=== PATIENT | male | born 1945 | race Caucasian/White ===

== ENCOUNTER 2016-07-17 21:42 | Observation (INO) | payer OTHER ==
[2016-07-17 21:52] VITALS: BMI 32.5
--- NOTE | 2016-07-17 22:11 | PDOC ---
History of Present Illness - History of Present Illness Initial Comments: 07/17/16 22:23 Patient is a 71 year old male with significant medical hx of nephrectomy who is presenting to the ED after an episode of altered mental status that occurred around 7:30 PM this evening. Today the patient reports having a left ocular migraine, which he says hes had in the past, with seeing colorful light patterns. About an hour later, after his migraine resolved, the patient was having dinner with his when he had a 30-40 minute episode of confusion. The patient states he was unable to understand and identify certain words and places, such as [place] and the name of a long term acute care registered nurse friend. He states that during this episode, his peripheral vision became blurry and he developed a type of tunnel vision. He also endorses some transient shortness of breath without any diaphoresis or chest pain. Patient denies any slurred speech, facial droop, weakness, ataxia, diplopia, head trauma, chest pain, or loss of consciousness. PCP: Casper Jackson MD <Priti Knapp - Last Filed: 07/18/16 01:19> <Magda Matute - Last Filed: 07/18/16 04:25> - General Chief Complaint: Altered Mental Status Stated Complaint: DROOPED FACE/LOSS OF MEMORY Time Seen by Provider: 07/17/16 22:10 Past History <Priti Knapp - Last Filed: 07/18/16 01:19> - Psycho/Social/Smoking Cessation Hx Suicidal Ideation: No Smoking History: Never smoked <Magda Matute - Last Filed: 07/18/16 04:25> - Past Medical History Allergies/Adverse Reactions: Allergies Allergy/AdvReac Type Severity Reaction Status Date / Time No Known Allergies Allergy Verified 07/17/16 21:49 Home Medications: Ambulatory Orders NK [No Known Home Medication] 07/17/16 Review of Systems - Review of Systems Comments:: 07/17/16 22:25 CONSTITUTIONAL: Absent: fever, chills, diaphoresis, generalized weakness, malaise, loss of appetite HEENT: Present: visual changes Absent: rhinorrhea, nasal congestion, throat pain, throat swelling, difficulty swallowing, mouth swelling, ear pain, eye pain CARDIOVASCULAR: Absent: chest pain, syncope, palpitations, irregular heart rate, lightheadedness , peripheral edema RESPIRATORY: Absent: cough, shortness of breath, dyspnea with exertion, orthopnea, wheezing, stridor, hemoptysis GASTROINTESTINAL: Absent: abdominal pain, abdominal distension, nausea, vomiting, diarrhea, constipation, melena, hematochezia GENITOURINARY: Absent: dysuria, frequency, urgency, hesitancy, hematuria, flank pain, genital pain MUSCULOSKELETAL: Absent: myalgia, arthralgia, joint swelling SKIN: Absent: rash, itching, pallor HEMATOLOGIC/IMMUNOLOGIC: Absent: easy bleeding, easy bruising, lymphadenopathy, frequent infections ENDOCRINE: Absent: unexplained weight gain, unexplained weight loss, heat intolerance, cold intolerance NEUROLOGIC: Present: headache, mental status changes, confusion Absent: focal weakness or paresthesia, dizziness, unsteady gait, seizure, bladder or bowel incontinence. PSYCHIATRIC: Absent: anxiety, depression, suicidal or homicidal ideation, hallucinations <Priti Knapp - Last Filed: 07/18/16 01:19> *Physical Exam - Vital Signs Last Vital Signs Temp Pulse Resp BP Pulse Ox 97.8 F 84 18 156/84 96 07/17/16 21:50 07/17/16 21:50 07/17/16 21:50 07/17/16 21:50 07/17/16 21:50 - Physical Exam Comments: 07/17/16 22:26 GENERAL: Well developed, well nourished. Awake and alert. No acute distress. HEENT: Normocephalic, atraumatic. PERRLA, EOMI. No conjunctival pallor. Sclera are non- icteric. Moist mucous membranes. Oropharynx is clear. NECK: Supple. Full ROM. No JVD. Carotid pulses 2+ and symmetric, without bruits. No thyromegaly. No lymphadenopathy. CARDIOVASCULAR: Regular rate and rhythm. No murmurs, rubs, or gallops. Distal pulses are 2+ and symmetric. PULMONARY: No evidence of respiratory distress. Lungs clear to auscultation bilaterally. No wheezing, rales or rhonchi. ABDOMINAL: Soft. Non-tender. Non-distended. No rebound or guarding. No organomegaly. Normoactive bowel sounds. MUSCULOSKELETAL: Normal range of motion at all joints. No bony deformities or tenderness. No CVA tenderness. EXTREMITIES: No cyanosis. No clubbing. No edema. No calf tenderness. SKIN: Warm and dry. Normal capillary refill. No rashes. No jaundice. NEUROLOGICAL: Alert, awake, appropriate. No gross focal neurological deficits. Cranial nerves 2-12 intact. Normal speech. Toes are down-going bilaterally. Gait is normal without ataxia. PSYCHIATRIC: Cooperative. Good eye contact. Appropriate mood and affect. <Priti Knapp - Last Filed: 07/18/16 01:19> - Vital Signs Last Vital Signs Temp Pulse Resp BP Pulse Ox 97.8 F 84 18 156/84 96 07/17/16 21:50 07/17/16 21:50 07/17/16 21:50 07/17/16 21:50 07/17/16 21:50 <Magda Matute - Last Filed: 07/18/16 04:25> NIH Stroke Scale - Last Known Well Date/Time & Onset Date Last Known Well: 07/17/16 Time Last Known Well: 19:00 - Initial Evaluation Level of consciousness: Alert Ask patient the month and their age: Answers both correctly Ask patient to open & close eyes; make fist and let go: Obeys both correctly Best gaze (horizontal eye movement): Normal Visual field testing: No visual field loss Facial paresis (Show teeth/raise eyebrows/close eyes tight): Normal symmetrical movement Motor Function: Left Arm: Normal Motor Function: Right Arm: Normal (extends arm 90 (or 45) degrees for 10 seconds without drift Motor Function: Left Leg: Normal (extends leg 30 degrees for 5 seconds without drift) Motor Function: Right Leg: Normal (extends leg 30 degrees for 5 seconds without drift) Limb Ataxia: No ataxia Sensory(Use pinprick test arms,legs,trunk,face/side to side): Normal Best language (Describe picture, name items, read sentences): No Aphasia Dysarthria (read several words): Normal articulation Extinction and Inattention: No abnormality - Total Score NIH Stroke Scale Score: 0 <Magda Matute - Last Filed: 07/18/16 04:25> tPA Exclusion Checklist 0-3hr - Time Elapsed Date last known well: 07/17/16 Time last known well: 19:00 Elaspsed time: Day(s) and 9 Hour(s) and 20 Minutes - Thrombolytic Therapy Candidate Is the patient eligible for Thrombolytic Therapy?: No - Exclusion Criteria 0-3hr SBP greater than 185 or DBP greater than 110mmHg despite tx: No Recent IC/spinal surgery,head trauma or stroke w/in last 3mo: No Hx of previous IC hemorrhage, IC neoplasm, AVM or aneurysm: No Active internal bleeding: No Blding diathesis(low plt ct, inc PTT,INR>1.7 or use of NOAC): No Symptoms suggest subarachnoid hemorrhage: No CT demonstrates multilobar infarct(>1/3 cerebral hemiphere): No Arterial puncture at noncompressible site in previous 7 days: No Blood glucose concentration less than 50mg/dL (2.7mmol/L): No - Relative Exclusion Criteria 0-3h Life expectancy <1yr/severe co-morbid illness/MECHANIC on admit: No : No Patient/family refused: No Rapid improvement: Yes Stroke severity too mild: Yes Recent acute RI (w/in previous 3 months): No Seizure at onset with postictal residual neuro impairments: No Major surgery or serious trauma w/in previous 14 days: No Recent GI or hemorrhage (w/in previous 21 days): No - Ineligibility reason(s) Reasons No tPA given: See reason(s) noted above (patient was back to baseline) <Magda Matute - Last Filed: 07/18/16 04:25> Critical Care Time/MDM Note - Medical Decision Making Note: 07/18/16 04:21 71 yo Male presented with a 40 minute episode of confusion -upon arrival his NIHSS was zero -T PA and was not given because patient was back to baseline upon arrival I spoke to neurologist, Dr. Cuadra and discussed case MRI should be done this morning diff diag includes: -TIA -complex seizure/temporal lobe -transient global amnesia -complex migraine pt given aspirin <Magda Matute - Last Filed: 07/18/16 04:25> Discharge Disposition <Priti Knapp - Last Filed: 07/18/16 01:19> - Discharge Dispostion Admit: Yes <Magda Matute - Last Filed: 07/18/16 04:25> - Diagnosis TIA (transient ischemic attack) Qualifiers: Transient cerebral ischemia type: other Qualified Code(s): G45.8 - Other transient cerebral ischemic attacks and related syndromes Attestations - Attestations 07/17/16 22:27 Documentation prepared by Priti Knapp, acting as chief medical technologist for Magda Matute MD. <Priti Knapp - Last Filed: 07/18/16 01:19> ED Treatment Course - LABORATORY CBC & Chemistry Diagram: 07/17/16 22:33 07/17/16 22:33 - RADIOLOGY Radiograph Interpretation: 07/17/16 23:[address] Impression: No definite acute infarct is identified within the limitations of CT. A small right basal ganglia infarct is noted which is probably chronic, less likely subacute. Reported By: Candido Perez MD <Priti Knapp - Last Filed: 07/18/16 01:19> - LABORATORY CBC & Chemistry Diagram: 07/17/16 22:33 07/17/16 22:33 <Magda Matute - Last Filed: 07/18/16 04:25>
[2016-07-17] MEDS ORDERED: SODIUM CHLORIDE 1,000 ML IV SCH (22:15)
[2016-07-17 23:21] LABS: BASOPHIL 0.9 % (0-2.0); EOSINOPHIL 4.4 % (0-4.5); MCH 30.8 pg (25.7-33.7); MCHC 33.5 g/dl (32.0-35.9); MEAN PLT VOLUME 9.5 fl (7.5-11.1); NEUTROPHILS 51.2 % (42.8-82.8); PLATELET COUNT 210 K/MM3 (134-434); RDW 13.1 % (11.9-15.9); WHITE BLOOD COUNT 7.7 K/mm3 (4.0-10.0)
[2016-07-17 23:34] LABS: INR 1.04 (0.82-1.09); PROTHROMBIN TIME (PATIENT) 11.5 SEC (9.98-11.88)
[2016-07-17 23:47] LABS: ALBUMIN 3.4 g/dl (3.4-5.0); ANION GAP 10 (8-16); BILIRUBIN,TOTAL 0.3 mg/dL (0.2-1.0); CALCIUM 8.6 mg/dL (8.5-10.1); CHOLESTEROL 178 mg/dL (50-200); CO2 26 mmol/L (21-32); COCKROFT - GAULT 74.67; CREATININE 1.5 mg/dL (0.7-1.3); GLUCOSE,RANDOM 123 mg/dL (74-106); SGPT/ALT 32 U/L (12-78); TOT PROT 6.4 g/dl (6.4-8.2)
[2016-07-17 23:50] LABS: ALK PHOS 81 U/L (45-117); TROPONIN I < 0.02 ng/ml (0.00-0.05)
[2016-07-17 23:56] LABS: SGOT/AST 29 U/L (15-37)
[2016-07-18 00:11] LABS: URINE APPEARANCE CLEAR; URINE BILIRUBIN NEGATIVE (NEGATIVE); URINE BLOOD NEGATIVE (NEGATIVE); URINE COLOR LTYELLOW; URINE GLUCOSE (UA) NEGATIVE (NEGATIVE); URINE KETONE NEGATIVE (NEGATIVE); URINE LEUK ESTERASE NEGATIVE (NEGATIVE); URINE NITRITE NEGATIVE (NEGATIVE); URINE PROTEIN NEGATIVE (NEGATIVE); URINE UROBILINOGEN NEGATIVE E.U./dl (0.2-1.0)
[2016-07-18] MEDS ORDERED: ASPIRIN 81 MG CHEWABLE TABLETS PO ONE (02:34)
[2016-07-18] MEDS ORDERED: ASPIRIN 81 MG CHEWABLE TABLETS ONE (02:36)
[2016-07-18 02:38] LABS: LDL CHOLESTEROL (ONLY SJRH) 117 mg/dL (5-100)
[2016-07-18 06:41] LABS: CALCIUM 9.1 mg/dL (8.5-10.1); COCKROFT - GAULT 74.67; CREATININE 1.5 mg/dL (0.7-1.3)
[2016-07-18 06:43] LABS: C-REACTIVE PROTEIN 0.7 MG/DL (0.00-0.3)
--- NOTE | 2016-07-18 10:51 | HP ---
Admitting History and Physical - Primary Care Physician PCP: Casper Jackson - Admission Chief Complaint: I had trouble remembering History of Present Illness: Mr Jaimes is a very pleasant 71 year old male who comes in with episode of confusion. He has a history of ocular migraines and had one yesterday. It lasted about 20 minutes before resolving, he says it was his normal ocular migraine and he normally gets them about once a month. He was sitting with his at a restaurant yesterday and his mentioned his sister in law [place] , and he says that the name meant absolutely nothing to him at the moment and when he tried to think about it everything felt fuzzy. He says his mentioned other people as well, including his mom, and he could not associate their names with the person she was talking about. He says this lasted 30 minutes and resolved. He says aside from this he was feeling fine. He was not having ocular migraines or changes in vision during the episode of confusion. He denies hearing changed, facial droop, difficulty word finding, focal weakness , or numbness/tingling. He did not have lighheadedness, dizziness, passing out, chest pain, fluttering, palpitations, abdominal pain, nausea, vomiting, diarrhea , constipation, or swelling. He had minor dyspnea on exertion after the episode but it did not last long. Currently he is feeling fine. 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) - Past Surgical History Past Surgical History: Yes: Hernia Repair, Nephrectomy (donor) - Smoking History Smoking history: Never smoked - Alcohol/Substance Use Hx Alcohol Use: Yes History of Substance Use: reports: None - Social History Usual Living Arrangement: Yes: With Spouse ADL: Independent History of Recent Travel: No Home Medications - Allergies Allergies/Adverse Reactions: Allergies Allergy/AdvReac Type Severity Reaction Status Date / Time No Known Allergies Allergy Verified 07/17/16 21:49 - Home Medications Home Medications: Ambulatory Orders NK [No Known Home Medication] 07/17/16 Family Disease History - Family Disease History Family Disease History: Other: Father (CVA from VTE s/p surgery), Mother ( alzheimers) Review of Systems Findings/Remarks: Full review of systems obtained, as per HPI and otherwise negative Physical Examination Vital Signs: Vital Signs Temperature 98.0 F 07/18/16 02:29 Pulse Rate 56 L 07/18/16 08:01 Respiratory Rate 18 07/18/16 08:01 Blood Pressure 143/81 07/18/16 08:01 O2 Sat by Pulse Oximetry (%) 97 07/18/16 08:01 Constitutional: Yes: No Distress, Calm, Obese Eyes: Yes: Conjunctiva Clear, EOM Intact, PERRL HENT: Yes: Atraumatic, Normocephalic Cardiovascular: Yes: Regular Rate and Rhythm. No: Gallop, Murmur, Rub Respiratory: Yes: Regular, CTA Bilaterally. No: Rales, Rhonchi, Wheezes Gastrointestinal: Yes: Normal Bowel Sounds, Soft. No: Distention, Tenderness Extremities: Yes: WNL Edema: No Labs: CBC, BMP 07/18/16 06:10 Imaging - Results Cat Scan: Report Reviewed Problem List - Problems (1) TIA (transient ischemic attack) Assessment/Plan: -symptoms most consistent with TIA -however will consider underlying arrhythmia as well -admit under observation -neurology consulted -carotid ultrasound reviewed -ECHO ordered -awaiting MRI -start low dose aspirin -if work up negative, will contact office for outpatient holter or event monitor Code(s): G45.9 - TRANSIENT CEREBRAL ISCHEMIC ATTACK, UNSPECIFIED Qualifiers: Transient cerebral ischemia type: transient global amnesia Qualified Code(s): G45.4 - Transient global amnesia (2) CVA, old, alterations of sensations Assessment/Plan: -noted on CT scan -? if source of ocular migraines -will start on aspirin and statin Code(s): I69.398 - OTHER SEQUELAE OF CEREBRAL INFARCTION R20.9 - UNSPECIFIED DISTURBANCES OF SKIN SENSATION (3) HLD (hyperlipidemia) Assessment/Plan: -elevated LDL and decreased HDL -begin lipitor -recommend outpatient diet and exercise program Code(s): E78.5 - HYPERLIPIDEMIA, UNSPECIFIED (4) Ocular migraine Assessment/Plan: -currently resolved Code(s): G43.109 - MIGRAINE WITH AURA, NOT INTRACTABLE, W/O STATUS MIGRAINOSUS (5) SAMY (acute kidney injury) Assessment/Plan: -suspect secondary to one kidney -continue hydration -check urine sodium and creatinine -check urinalysis -check renal ultrasound -if remaining kidney normal, can monitor as an outpatient Code(s): N17.9 - ACUTE KIDNEY FAILURE, UNSPECIFIED
[2016-07-18 16:04] LABS: URINE CREATININE 39.9 mg/dL (20-370)
--- NOTE | 2016-07-18 16:38 | DS ---
Physical Examination Vital Signs: Vital Signs Temperature 97.9 F 07/18/16 15:34 Pulse Rate 68 07/18/16 15:34 Respiratory Rate 18 07/18/16 15:34 Blood Pressure 133/87 07/18/16 15:34 O2 Sat by Pulse Oximetry (%) 96 07/18/16 15:34 Findings/Remarks: Refer to H&P for physical exam Labs: CBC, BMP 07/18/16 06:10 Discharge Summary Reason For Visit: TIA Current Active Problems SAMY (acute kidney injury) (Acute) CVA, old, alterations of sensations (Acute) HLD (hyperlipidemia) (Acute) Ocular migraine (Acute) TIA (transient ischemic attack) (Acute) Hospital Course: Mr Jaimes is a very pleasant 71 year old male who came in with a TIA. By the time he presented all symptoms had resolved. He was admitted under observation. He had carotid ultrasound which showed no significant stenosis. He had an ECHO which was normal. CT scan showed old CVA, MRI confirmed this. There was no new lesion, but an old lacunar lesion was seen. Neurology consulted and reviewed findings. Currently he is safe for discharge. He was started on low dose lipitor since his LDL was above 100 with infarct. He was also encouraged to take a low dose aspirin. He is to follow up with Dr Mathis for Holter monitor as symptoms may be secondary to arrhythmia. He is to discuss a diet and exercise regimen with Dr Jackson. Condition: Good - Instructions Diet, Activity, Other Instructions: low fat diet. resume previous activity. discuss with PCP diet and exercise regimen. Call Dr Mathis's office to reschedule appointment for Holter monitor. Referrals: Casper Jackson MD [Primary Care Provider] - Avinash Mathis MD [Staff Physician] - Daniel Cuadra DO [Staff Physician] - Disposition: HOME - Home Medications Comprehensive Discharge Medication List: Ambulatory Orders Aspirin [ASA -] 81 mg PO DAILY #0 tab.chew 07/18/16 Atorvastatin Ca [Lipitor] 10 mg PO HS #30 tablet 07/18/16
[2016-07-18 17:03] VITALS: BP 130/88; PULSE 70; TEMP 97.7
[2016-07-18] MEDS ORDERED: ATORVASTATIN CA 10 MG TABLET (FP) PO SCH (22:00)
[2016-07-19] MEDS ORDERED: ASPIRIN 81 MG CHEWABLE TABLETS PO SCH (10:00)
--- NOTE | 2016-07-19 16:35 | EKG ---
Test Reason : Blood Pressure : / mmHG Vent. Rate : 061 BPM Atrial Rate : 061 BPM P-R Int : 168 ms QRS Dur : 084 ms QT Int : 388 ms P-R-T Axes : 037 001 008 degrees QTc Int : 390 ms NORMAL SINUS RHYTHM MODERATE VOLTAGE CRITERIA FOR LVH, MAY BE NORMAL VARIANT BORDERLINE ECG NO PREVIOUS ECGS AVAILABLE Confirmed by DAVID VELAZQUEZ MD ([id number]) on 07/19/2016 4:35:06 PM Referred By: Confirmed By:DAVID VELAZQUEZ MD
== END 2016-07-18 19:10 | disposition home or self-care (01) ==
LOC: JER 21:42 → UNDOADMOB 07-18 02:54 → INTOOBSV 07-18 02:54 → JERBED 07-18 02:54 → J4S 07-18 15:40
PROVIDERS: ADMIT Specialist; ATTEND Specialist
PROC: 3E0337Z Introduction of Electrolytic and Water Balance Substance into Peripheral Vein, Percutaneous Approach (ICD-10-PCS; principal; 2016-07-18)
DX: G45.8 Other transient cerebral ischemic attacks and related syndromes (principal); R20.9 Unspecified disturbances of skin sensation; E78.5 Hyperlipidemia, unspecified; G43.109 Migraine with aura, not intractable, without status migrainosus; N17.9 Acute kidney failure, unspecified; Z90.5 Acquired absence of kidney; Z86.73 Personal history of transient ischemic attack (TIA), and cerebral infarction without residual deficits
CPT/HCPCS: 36415; 70450-TC; 70551-TC; 76775-TC; 80048; 80053; 81003; 82436; 82465; 82550; 82553; 82570; 82607; 82746; 83718; 83721; 84133; 84300; 84478; 84484; 85025; 85610; 85651; 86140; 86618; 86850; 86900; 86901; 93005; 93010; 93306-TC; 93880-TC; 99285-25; G0378

== ENCOUNTER 2016-07-31 18:49 | Emergency (ER) | payer OTHER ==
[2016-07-31] MEDS ORDERED: DIPHTH,PERTUSS(ACELL),TET 0.5 ML DISP.SYRIN IM ONE (18:57)
--- NOTE | 2016-07-31 19:00 | PDOC ---
Rapid Medical Evaluation Time Seen by Provider: 07/31/16 18:56 Medical Evaluation: Allergies Allergy/AdvReac Type Severity Reaction Status Date / Time No Known Allergies Allergy Verified 07/17/16 21:49 07/31/16 18:59 I have performed a brief in-person evaluation of this patient. o The patient presents with a chief complaint of: Laceration to the right lateral lower extremity. Tetanus not UTD. o Pertinent physical exam findings: 3 cm linear laceration to the right lateral lower leg, no active bleeding. o I have ordered the following: Boostrix o The patient will proceed to the ED for further evaluation.
[2016-07-31 19:01] VITALS: BP 156/71; PULSE 96; TEMP 97.9; BMI 32.5
--- NOTE | 2016-07-31 20:16 | PDOC ---
History of Present Illness - General Chief Complaint: Injury Stated Complaint: LACERATION Time Seen by Provider: 07/31/16 18:56 History Source: Patient - History of Present Illness Timing/Duration: reports: this afternoon Severity: Yes: mild Location: reports: extremities Past History - Past Medical History Allergies/Adverse Reactions: Allergies Allergy/AdvReac Type Severity Reaction Status Date / Time No Known Allergies Allergy Verified 07/31/16 19:01 Home Medications: Ambulatory Orders Aspirin [ASA -] 81 mg PO DAILY #0 tab.chew 07/18/16 Atorvastatin Ca [Lipitor] 10 mg PO HS #30 tablet 07/18/16 Anemia: No Asthma: No Cancer: No Cardiac Disorders: No CVA: No COPD: No CHF: No Dementia: No Diabetes: No GI Disorders: No Disorders: No HTN: No Hypercholesterolemia: Yes Liver Disease: No Seizures: No Thyroid Disease: No - Surgical History Abdominal Surgery: Yes (Hernia Repair) Appendectomy: No Cardiac Surgery: No Cholecystectomy: No Lung Surgery: No Neurologic Surgery: No Orthopedic Surgery: Yes (Bilateral knee arthroscopy) - Psycho/Social/Smoking Cessation Hx Suicidal Ideation: No Smoking History: Never smoked Have you smoked in the past 12 months: No Hx Alcohol Use: Yes (OCCASIONALLY) Drug/Substance Use Hx: No Substance Use Type: None Hx Substance Use Treatment: No Review of Systems - Review of Systems Integumentary: Yes: Other (laceration) *Physical Exam - Vital Signs Last Vital Signs Temp Pulse Resp BP Pulse Ox 97.9 F 96 H 18 156/71 96 07/31/16 18:56 07/31/16 18:56 07/31/16 18:56 07/31/16 18:56 07/31/16 18:56 - Physical Exam General Appearance: Yes: Appropriately Dressed. No: Apparent Distress HEENT: positive: Normal Voice Neck: positive: Supple Respiratory/Chest: negative: Respiratory Distress Extremity: positive: Other (~2cm linear laceration down to dermis, to lateral aspect of R leg) Procedures - Laceration/Wound Repair Right Lower Leg Wound Length: to 2.5 cm Wound Explored: clean Wound's Depth, Shape: superficial Irrigated w/ Saline: Yes Betadine Prep: Yes Anesthesia: 1% Lidocaine Amount of Anesthetic (ccs): 6 Wound Repaired With: Sutures Suture Size/Type: 4:0, nylon Number of Sutures: 8 Sterile Dressing Applied: Yes Medical Decision Making - Medical Decision Making 07/31/16 20:10 71 yo M, no sig hx, p/w leg lac after striking leg against metal edge of old travel case at home today. See exam Leg lac -tetanus -lac repair -wound check in 2 days as needed 07/31/16 20:17 *DC/Admit/Observation/Transfer Diagnosis at time of Disposition: Laceration - Discharge Dispostion Disposition: HOME Condition at time of disposition: Good - Patient Instructions Printed Discharge Instructions: Laceration Repair Additional Instructions: Keep wound dry for the next 24 hours, after which you can allow water and mild soap and run over wound to prevent excessive scabbing over suture knots. Apply Neosporin once a day until sutures are removed. Return immediately to ER for redness, pus or fever. Return to ED for suture removal in 10-14 days
== END 2016-07-31 20:45 | disposition home or self-care (01) ==
LOC: JERFT 18:49
PROC: 0HQKXZZ Repair Right Lower Leg Skin, External Approach (ICD-10-PCS; principal; 2016-07-31)
DX: S81.811A Laceration without foreign body, right lower leg, initial encounter (principal); W22.8XXA Striking against or struck by other objects, initial encounter; Y93.89 Activity, other specified; Y92.009 Unspecified place in unspecified non-institutional (private) residence as the place of occurrence of the external cause; E78.00 Pure hypercholesterolemia, unspecified
CPT/HCPCS: 12001-25; 90715; 99281-25

== ENCOUNTER 2018-08-07 16:37 | Emergency (ER) | payer OTHER ==
[2018-08-07 16:51] VITALS: BP 134/80; PULSE 87; TEMP 97.3; BMI 32.1
--- NOTE | 2018-08-07 16:55 | PDOC ---
Rapid Medical Evaluation Chief Complaint: Respiratory Time Seen by Provider: 08/07/18 16:47 Medical Evaluation: Allergies Allergy/AdvReac Type Severity Reaction Status Date / Time No Known Allergies Allergy Verified 07/31/16 19:01 08/07/18 16:50 I have performed a brief in-person evaluation of this patient. The patient presents with a chief complaint of: worsen cough after completion of Zpack today, + fevers / chills Pertinent physical exam findings: hoarse throat/ + moist cough / tylenol ~ 1 hour ago. I have ordered the following: CXR , ekg, labs The patient will proceed to the ED for further evaluation. 08/07/18 16:55
--- NOTE | 2018-08-08 13:43 | EKG ---
Test Reason : Blood Pressure : / mmHG Vent. Rate : 086 BPM Atrial Rate : 086 BPM P-R Int : 144 ms QRS Dur : 082 ms QT Int : 352 ms P-R-T Axes : 052 038 037 degrees QTc Int : 421 ms NORMAL SINUS RHYTHM POSSIBLE LEFT ATRIAL ENLARGEMENT Confirmed by ENRRIQUE YORK MD ([id number]) on 08/08/2018 1:42:51 PM Referred By: Confirmed By:ENRRIQUE YORK MD
== END 2018-08-07 18:33 | disposition left against medical advice (07) ==
LOC: JERFT 16:37 → JER 16:37
DX: Z53.21 Procedure and treatment not carried out due to patient leaving prior to being seen by health care provider (principal)
CPT/HCPCS: 93005; 93010; 99281-25

== ENCOUNTER 2023-11-10 10:58 | Emergency (ER) | payer OTHER ==
[2023-11-10 11:11] VITALS: RESP 18; BMI 31.0
[2023-11-10 15:02] LABS: BASO % 0.4 % (0-2.0); EOS % 0.6 % (0-4.5); HEMATOCRIT 41.1 % (35.4-49); HEMOGLOBIN 12.9 GM/dL (11.7-16.9); LYMPH % 8.8 % (8-40); MCH 29.4 pg (25.7-33.7); MCHC 31.3 g/dl (32.0-35.9); MEAN CELL VOLUME 93.7 fl (80-96); MEAN PLT VOLUME 9.4 fl (7.5-11.1); MONO % 11.8 % (3.8-10.2); NEUT % 78.4 % (42.8-82.8); PLATELET COUNT 221 10^3/uL (134-434); RBC 4.39 M/mm3 (4.00-5.60); RDW 15.3 % (11.9-15.9); WHITE BLOOD COUNT 12.9 K/mm3 (4.0-10.0)
[2023-11-10 15:09] LABS: INR 1.02 (0.83-1.09); PROTHROMBIN TIME (PATIENT) 11.7 SEC (9.7-13.0)
[2023-11-10 15:12] LABS: ACTIVATED PTT 32.2 SECONDS (25.2-36.5)
[2023-11-10 15:30] LABS: POTASSIUM 3.7 mmol/L (3.5-5.1)
[2023-11-10 15:32] LABS: CALCIUM 8.4 mg/dL (8.5-10.1)
[2023-11-10 15:33] LABS: ALBUMIN 3.3 g/dl (3.4-5.0); BLOOD UREA NITROGEN 16.9 mg/dL (7-18); MAGNESIUM 1.8 mg/dL (1.8-2.4)
[2023-11-10 15:36] LABS: CREATININE 1.3 mg/dL (0.55-1.3)
[2023-11-10 15:38] LABS: BILIRUBIN,TOTAL 0.6 mg/dL (0.2-1); TOT PROT 5.6 g/dl (6.4-8.2)
[2023-11-10 15:39] LABS: ERYTHROCYTE SEDIMENTATION RATE 5 mm/hr (0-20)
[2023-11-10 16:05] VITALS: BP 150/78; PULSE 68; TEMP 98.1
[2023-11-10] MEDS: PIPERACILLIN/TAZOB 4.5 GM 4.5 GM in DEXTROSE 5%-WATER 100 ML IVPB ONE (16:47)
[2023-11-10] MEDS: VANCOMYCIN 1,000 MG in DEXTROSE 5%-WATER - 250 ML IVPB ONE (16:47)
== END 2023-11-10 17:00 | disposition admitted as inpatient to this hospital (09) ==
LOC: JER 10:58
DX: L03.116 Cellulitis of left lower limb (principal)
CPT/HCPCS: 36415; 73630-TC-LT; 80053; 83735; 85025; 85610; 85651; 85730; 86140; 86850; 86900; 86901; 87040; 99285-25